=== PATIENT | male | born 1935 | race African-American/Black ===

== ENCOUNTER 2018-06-23 08:13 | Day surgery (SDC) | payer OTHER ==
[2018-06-17 09:10] VITALS: BMI 26.4
[2018-06-23] MEDS ORDERED: PROPOFOL 20 ML ONE ×2 (09:31)
[2018-06-23] MEDS ORDERED: LIDOCAINE HCL/PF 2% SDV 5ML VIAL ONE (09:31)
[2018-06-23 10:16] VITALS: TEMP 97.8
[2018-06-23 10:35] VITALS: BP 145/67; PULSE 61
--- NOTE | 2018-06-24 15:52 | PATH ---
Surgical Pathology Report Patient Name: MISTY ROSE [facility]. Rec. #: [id number] /Age/Gender: 1935 (Age: 83) / M Account: [id number] Location: [facility] Taken: 06/23/2018 Received: 06/23/2018 Reported: 06/24/2018 Physicians: Gregg Saenz M.D. Specimen(s) Received BX ANTRUM Clinical History Weight loss, rule out malignancy Postoperative diagnosis: Mild gastritis Final Diagnosis ANTRUM, BIOPSY: SEVERE CHRONIC ACTIVE GASTRITIS. IMMUNOSTAIN SHOWS NUMEROUS H. PYLORI ORGANISMS. Electronically Signed Ruchi Mitchell M.D. Gross Description Received in formalin, labeled "antrum" is a cooper, irregular portion of soft tissue measuring 0.4 cm. in greatest dimension. The specimen is submitted in toto in one cassette. 06/23/201806/23/2018
== END 2018-06-23 10:45 | disposition home or self-care (01) ==
LOC: FASU-ENDO 08:13
PROVIDERS: ATTEND Internal Medicine Gastroenterology
PROC: 0DB78ZX Excision of Stomach, Pylorus, Via Natural or Artificial Opening Endoscopic, Diagnostic (ICD-10-PCS; principal; 2018-06-23 09:43)
DX: K29.50 Unspecified chronic gastritis without bleeding (principal); B96.81 Helicobacter pylori [H. pylori] as the cause of diseases classified elsewhere; R63.4 Abnormal weight loss
CPT/HCPCS: 88305-TC; 88342-TC